=== PATIENT | male | born 1960 | race American Indian/Alaskan Native ===

== ENCOUNTER 2017-03-07 12:39 | Emergency (ER) | payer BC ==
[2017-03-07 13:09] VITALS: BP 129/70; PULSE 75; TEMP 98.5; BMI 40.5
[2017-03-07] MEDS ORDERED: KETOROLAC TROMETHAMINE 60 MG/2 ML VIAL IM ONE (14:02)
[2017-03-07] MEDS ORDERED: KETOROLAC TROMETHAMINE 60 MG/2 ML VIAL ONE (14:20)
--- NOTE | 2017-03-07 14:43 | PDOC ---
History of Present Illness <Kashif Barr - Last Filed: 03/07/17 16:06> - General History Source: Patient Exam Limitations: No Limitations - History of Present Illness Initial Comments: 03/07/17 14:37 CHIEF COMPLAINT: Constant left shoulder pain for 2 weeks HISTORY OF PRESENT ILLNESS: Patient is a 56-year-old man who presents complaining of left shoulder pain from the scapular region radiating down the left arm. The pain has been constant and severe for 2 weeks. He saw his primary care physician for this pain about 4 days ago. He had an EKG that was normal. He was given Celebrex for the pain. He had lab work that was normal. His pain continues, constant, present all the time, interferes with his sleep at night when it feels particularly strong. The pain is in the left scapular region, continuous, radiating down the left arm. It gets a little bit worse with movement. There is no pain in the neck and no pain with movement of the neck. There is no chest pain. There is no shortness of breath. There is no relationship to exertion. REVIEW OF SYSTEMS: GENERAL/CONSTITUTIONAL: No fever or chills. No weakness. No weight change. HEAD, EYES, EARS, NOSE AND THROAT: No change in vision. No ear pain or discharge. No sore throat. CARDIOVASCULAR: No chest pain or shortness of breath. RESPIRATORY: No cough, wheezing, or hemoptysis. GASTROINTESTINAL: No nausea, vomiting, diarrhea or constipation. No rectal bleeding. GENITOURINARY: No dysuria, frequency, or change in urination. MUSCULOSKELETAL: Positive left scapular pain radiating down the left arm. No numbness or weakness in the arms. SKIN AND BREASTS: No rash or easy bruising. NEUROLOGIC: No headache, vertigo, loss of consciousness, or loss of sensation. PSYCHIATRIC: No depression or anxiety. ENDOCRINE: No increased thirst. No abnormal weight change. HEMATOLOGIC/LYMPHATIC: No anemia, easy bleeding, or history of blood clots. ALLERGIC/IMMUNOLOGIC: No hives or skin allergy. No latex allergy. <Marino Bourgeois - Last Filed: 03/07/17 16:14> - General Chief Complaint: Pain, Acute Stated Complaint: LEFT SHOULDER PAIN Time Seen by Provider: 03/07/17 13:03 Past History <Kashif Barr - Last Filed: 03/07/17 16:06> - Past Medical History Anemia: No Asthma: No Cancer: No Cardiac Disorders: No CVA: No COPD: No CHF: No Dementia: No Diabetes: Yes (x8 yrs) GI Disorders: No Disorders: No HTN: No Hypercholesterolemia: No Liver Disease: No Seizures: No Thyroid Disease: No - Surgical History Abdominal Surgery: No Appendectomy: No Cardiac Surgery: No Cholecystectomy: No Lung Surgery: No Neurologic Surgery: No Orthopedic Surgery: Yes (Bilateral Carpal Tunnel Release) - Psycho/Social/Smoking Cessation Hx Anxiety: No Suicidal Ideation: No Smoking Status: No Smoking History: Never smoked Have you smoked in the past 12 months: No Number of Cigarettes Smoked Daily: 0 Information on smoking cessation initiated: No Hx Alcohol Use: Yes (SOCIAL) Drug/Substance Use Hx: No Substance Use Type: Alcohol Hx Substance Use Treatment: No <Marino Bourgeois - Last Filed: 03/07/17 16:14> - Past Medical History Allergies/Adverse Reactions: Allergies Allergy/AdvReac Type Severity Reaction Status Date / Time No Known Drug Allergies Allergy Verified 03/07/17 12:47 CLAMS Allergy Severe Swelling Uncoded 03/07/17 12:47 Home Medications: Ambulatory Orders Metformin HCl [Glucophage] 1,000 mg PO BID 02/25/15 Ascorbate Calcium [Vitamin C] 500 mg PO DAILY 03/07/17 Cholecalciferol (Vitamin D3) [Vitamin D3] 5,000 unit PO DAILY 03/07/17 Dapagliflozin Propanediol [Farxiga] 10 mg PO DAILY 03/07/17 Gabapentin 300 mg PO DAILY #30 capsule 03/07/17 Vitamin B Complex 1 each PO DAILY 03/07/17 *Physical Exam - Vital Signs Last Vital Signs Temp Pulse Resp BP Pulse Ox 98.5 F 75 20 129/70 100 03/07/17 12:40 03/07/17 12:40 03/07/17 12:40 03/07/17 12:40 03/07/17 12:40 <Kashif Barr - Last Filed: 03/07/17 16:06> - Vital Signs Last Vital Signs Temp Pulse Resp BP Pulse Ox 98.5 F 75 20 129/70 100 03/07/17 12:40 03/07/17 12:40 03/07/17 12:40 03/07/17 12:40 03/07/17 12:40 - Physical Exam Comments: 03/07/17 14:40 GENERAL: The patient is awake, alert, and fully oriented, in no acute distress. HEAD: Normal with no signs of trauma. EYES: Pupils equal, round and reactive to light, extraocular movements intact, sclera anicteric, conjunctiva clear. ENT: Ears normal, nares patent, oropharynx clear without exudates. Moist mucous membranes. NECK: Normal range of motion, supple without lymphadenopathy, JVD, or masses. LUNGS: Breath sounds equal, clear to auscultation bilaterally. No wheezes, and no crackles. HEART: Regular rate and rhythm, normal S1 and S2 without murmur, rub or gallop. ABDOMEN: Soft, nontender, normoactive bowel sounds. No guarding, no rebound. No masses. EXTREMITIES: The left scapula is somewhat tender to palpation. There is no rhomboid tenderness. There is no shoulder and swelling or tenderness at the glenohumeral area. NEUROLOGICAL: Cranial nerves II through XII grossly intact. Normal speech, normal gait. Sensation and strength is intact throughout the left arm and the right arm. PSYCH: Normal mood, normal affect. SKIN: Warm, Dry, normal turgor, no rashes or lesions noted. <Marino Bourgeois - Last Filed: 03/07/17 16:14> Heart Score/ECG Review - ECG Intrepretation Comment:: 03/07/17 14:43 Twelve-lead EKG shows normal sinus rhythm at a rate of 67 bpm. The axis is normal. The intervals are notable for an incomplete right bundle branch block. There are no acute ST elevations or depressions. In comparison with prior EKG of 02/08/2015, there are no significant changes. Impression: Normal sinus rhythm with incomplete right bundle branch block. Unchanged from prior EKG. <Marino Bourgeois - Last Filed: 03/07/17 16:14> ED Treatment Course - RADIOLOGY Radiograph Interpretation: 03/07/17 16:06 EXAM#: TYPE/EXAM: RESULT: [id number] RAD/SHOULDER-LEFT Left scapular pain X-ray of the left shoulder, 2 views The alignment is satisfactory . No gross bone or soft tissue abnormality seen. No gross fracture or dislocation is identified. Impression: No gross bone or soft tissue abnormality seen. Reported By: Tera Montano MD 03/07/17 1557 - Medications Given in the ED: ED Medications Discontinued Medications Generic Name Dose Route Start Last Admin Trade Name Freq PRN Reason Stop Dose Admin Ketorolac Tromethamine 60 mg 03/07/17 14:02 03/07/17 14:23 Toradol Injection - IM 03/07/17 14:03 60 mg ONCE ONE Administration <Kashif Barr - Last Filed: 03/07/17 16:06> - RADIOLOGY Radiology Studies Ordered: Category Date Time Status CHEST PA & LAT [RAD] Stat Radiology 03/07/17 14:01 Ordered SHOULDER-LEFT [RAD] Stat Radiology 03/07/17 14:01 Ordered - Medications Given in the ED: ED Medications Discontinued Medications Generic Name Dose Route Start Last Admin Trade Name Freq PRN Reason Stop Dose Admin Ketorolac Tromethamine 60 mg 03/07/17 14:02 03/07/17 14:23 Toradol Injection - IM 03/07/17 14:03 60 mg ONCE ONE Administration <Marino Bourgeois - Last Filed: 03/07/17 16:14> Medical Decision Making - Medical Decision Making 03/07/17 16:07 Patient presents with left scapular pain radiating down the left arm. Neurovascular exam, cardiovascular exam, pulmonary exams, all normal. Twelve- lead EKG is normal. Chest x-ray PA and lateral has poor inspiration, but is otherwise normal on my preliminary review. Final radiology reading is pending at the time of disposition. Left shoulder x-ray was reviewed by me as well as the radiologist and shows no acute pathology. Impression: Examination and symptoms are most suggestive of radicular pain. The constant nature for 2 weeks makes cardiac disease highly unlikely, as does the stable EKG as well as the normal labs that were performed by the primary care physician. Patient was given Govea 2 inhibitor by his primary care physician. I will start him on gabapentin and advise him to follow up with his primary care physician for up titration of the medication. <Marino Bourgeois - Last Filed: 03/07/17 16:14> *DC/Admit/Observation/Transfer <Kashif Barr - Last Filed: 03/07/17 16:06> - Discharge Dispostion Admit: No <Marino Bourgeois - Last Filed: 03/07/17 16:14> Diagnosis at time of Disposition: Shoulder pain Qualifiers: Chronicity: acute Laterality: left Qualified Code(s): M25.512 - Pain in left shoulder - Discharge Dispostion Disposition: HOME Condition at time of disposition: Stable - Prescriptions Prescriptions: Gabapentin 300 mg PO DAILY #30 capsule - Referrals Referrals: Clark Tripathi MD [Staff Physician] - 3 days - Patient Instructions Printed Discharge Instructions: DI for Shoulder Pain Additional Instructions: You were evaluated today for left shoulder and left arm pain. The EKG was normal. The x-ray of the chest and the left shoulder did not show any abnormalities. The diagnosis is likely a pinched nerve with pain radiating down the left arm. It is recommended that you take gabapentin 300 mg once daily. Follow-up with Dr. Tripathi this week to see if you can increase the dose of the medication. You may also use a warm heating pad before bed to help with the pain. Return to the emergency department for any severe or progressive symptoms.
--- NOTE | 2017-03-10 09:25 | EKG ---
Test Reason : Blood Pressure : / mmHG Vent. Rate : 067 BPM Atrial Rate : 067 BPM P-R Int : 206 ms QRS Dur : 114 ms QT Int : 402 ms P-R-T Axes : 014 -20 011 degrees QTc Int : 424 ms NORMAL SINUS RHYTHM INCOMPLETE RIGHT BUNDLE BRANCH BLOCK NO PREVIOUS ECGS AVAILABLE Confirmed by MD CRYSTAL, TRISHA ([id number]) on 03/10/2017 9:24:55 AM Referred By: DR ARROYO Confirmed By:TRISHA ROJAS MD
== END 2017-03-07 16:19 | disposition home or self-care (01) ==
LOC: FER 12:39
PROC: 3E0233Z Introduction of Anti-inflammatory into Muscle, Percutaneous Approach (ICD-10-PCS; principal; 2017-03-07)
DX: M25.512 Pain in left shoulder (principal)
CPT/HCPCS: 71020-TC; 73030-TC-LT; 93005; 99283-25

== ENCOUNTER 2019-01-08 17:20 | Emergency (ER) | payer BC ==
[2019-01-08 17:51] VITALS: BP 117/76; PULSE 99; TEMP 98.7; BMI 40.7
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
== END 2019-01-08 18:35 | disposition home or self-care (01) ==
LOC: FER 17:20
DX: J02.9 Acute pharyngitis, unspecified (principal); J34.89 Other specified disorders of nose and nasal sinuses; R05 Cough; E11.9 Type 2 diabetes mellitus without complications; Z79.84 Long term (current) use of oral hypoglycemic drugs
CPT/HCPCS: 71046-TC-FY; 99282-25

== ENCOUNTER 2021-01-17 16:05 | Emergency (ER) | payer BC ==
[2021-01-17] MEDS ORDERED: LACTATED RINGERS SOLUTION 1000 ML INFUS.BAG IV STA (16:12)
[2021-01-17] MEDS ORDERED: ACETAMINOPHEN 1000 MG/100 ML VIAL (NON FORMULARY) IVPB ONE (16:21)
[2021-01-17 16:29] VITALS: BP 133/83; PULSE 95; TEMP 98.8; BMI 40.7
[2021-01-17] MEDS ORDERED: ACETAMINOPHEN INJECTION 100 ML IVPB ONE (16:30)
[2021-01-17 17:01] LABS: BASO % 1.3 % (0-2.0); EOS % 5.4 % (0-4.5); HEMOGLOBIN 15.7 GM/dl (11.7-16.9); LYMPH % 21.1 % (8-40); MCH 25.5 pg (25.7-33.7); MCHC 33.4 g/dl (32.0-35.9); MEAN CELL VOLUME 76.2 fl (80-96); MEAN PLT VOLUME 9.1 fl (7.5-11.1); MONO % 3.2 % (3.8-10.2); PLATELET COUNT 268 K/MM3 (134-434); RBC 6.17 M/mm3 (4.00-5.60); RDW 13.7 % (11.9-15.9); WHITE BLOOD COUNT 12.9 K/mm3 (4.0-10.8)
[2021-01-17 17:17] LABS: ALBUMIN 4.3 g/dl (3.4-5.0); BILIRUBIN,TOTAL 0.6 mg/dl (0.2-1); CALCIUM 8.9 mg/dl (8.5-10); CREATININE 1.1 mg/dl (0.55-1.3); MAGNESIUM 1.5 mg/dL (1.8-2.4); TOT PROT 7.9 g/dl (6.4-8.2)
[2021-01-17] MEDS ORDERED: LACTATED RINGERS SOLUTION 1000 ML INFUS.BAG IV ONE (17:53)
[2021-01-17] MEDS ORDERED: MAGNESIUM 1GM/D5W - 1 GM/100 ML IVPB IVPB ONE (20:28)
== END 2021-01-17 20:56 | disposition home or self-care (01) ==
LOC: FER 16:05
PROC: 3E0333Z Introduction of Anti-inflammatory into Peripheral Vein, Percutaneous Approach (ICD-10-PCS; principal; 2021-01-17)
PROC: 3E033GC Introduction of Other Therapeutic Substance into Peripheral Vein, Percutaneous Approach (ICD-10-PCS; 2021-01-17)
DX: R19.7 Diarrhea, unspecified (principal); E83.42 Hypomagnesemia
CPT/HCPCS: 36415; 74177-TC; 80053; 83735; 85025; 99285-25; J0131; Q9967

== ENCOUNTER 2021-12-15 18:43 | Emergency (ER) | payer BC ==
[2021-12-15 18:59] VITALS: BP 126/73; PULSE 82; TEMP 98.7; BMI 36.6
[2021-12-15 20:11] LABS: HEMATOCRIT 38.8 % (35.4-49); MCH 25.1 pg (25.7-33.7); MCHC 33.4 g/dl (32.0-35.9); MEAN CELL VOLUME 75.1 fl (80-96); MEAN PLT VOLUME 8.6 fl (7.5-11.1); PLATELET COUNT 200.4 10^3/uL (134-434); RBC 5.16 10^6/uL (4.00-5.60); RDW 16.2 % (11.9-15.9); WHITE BLOOD COUNT 7.3 10^3/uL (4.0-10.8)
[2021-12-15 20:16] LABS: INR 1.07 (0.83-1.09); PROTHROMBIN TIME (PATIENT) 12.3 SEC (9.7-13.0)
[2021-12-15 20:19] LABS: ALBUMIN 3.9 g/dl (3.4-5.0); BILIRUBIN,TOTAL 0.6 mg/dl (0.2-1); CALCIUM 9.1 mg/dl (8.5-10); CREATININE 1.3 mg/dl (0.55-1.3); TOT PROT 7.2 g/dl (6.4-8.2)
[2021-12-15 21:42] LABS: ADD RBC MORPHOLOGY YES; PLATELET ESTIMATE ADEQUATE
[2021-12-15 21:44] LABS: ANISOCYTOSIS 1+
[2021-12-15] MEDS ORDERED: ALBUTEROL SO4 2.5/IPRATROPIUM 0.5 INH SOL 3 ML VIAL.NEB. NEB ONE ×2 (23:30)
== END 2021-12-15 23:59 | disposition home or self-care (01) ==
LOC: FER 18:43
PROC: 3E0F7GC Introduction of Other Therapeutic Substance into Respiratory Tract, Via Natural or Artificial Opening (ICD-10-PCS; principal; 2021-12-15)
DX: J40 Bronchitis, not specified as acute or chronic (principal)
CPT/HCPCS: 36415; 71275-TC; 80053; 85025; 85610; 99285-25; Q9967

== ENCOUNTER 2023-02-17 05:11 | Emergency (ER) | payer BC ==
[2023-02-17 05:21] VITALS: PULSE 61; RESP 18; TEMP 97.8; BMI 38.1
[2023-02-17] MEDS ORDERED: ACETAMINOPHEN 1000 MG/100 ML BAG IVPB ONE (05:36)
[2023-02-17] MEDS ORDERED: ACETAMINOPHEN INJECTION 100 ML IVPB ONE (05:37)
[2023-02-17 05:51] VITALS: BP 177/83
[2023-02-17] MEDS ORDERED: morphine CARPU-JECT 2 MG/1 ML DISP.SYRIN IVPUSH ONE (06:26)
[2023-02-17] MEDS ORDERED: morphine SULFATE 4 MG/ML VIAL ONE (06:27)
[2023-02-17 06:36] LABS: BASO % 0.5 % (0-2.0); EOS % 3.6 % (0-4.5); HEMATOCRIT 41.2 % (35.4-49); HEMOGLOBIN 13.2 GM/dL (11.7-16.9); MCH 24.1 pg (25.7-33.7); MCHC 31.9 g/dl (32.0-35.9); MEAN CELL VOLUME 75.6 fl (80-96); MEAN PLT VOLUME 9.2 fl (7.5-11.1); MONO % 6.3 % (3.8-10.2); NEUT % 55.6 % (42.8-82.8); PLATELET COUNT 204 10^3/uL (134-434); RBC 5.46 M/mm3 (4.00-5.60); RDW 14.8 % (11.9-15.9); WHITE BLOOD COUNT 9.5 K/mm3 (4.0-10.0)
[2023-02-17] MEDS ORDERED: ONDANSETRON 4 MG/2 ML VIAL IVPUSH ONE (06:49)
[2023-02-17] MEDS ORDERED: ONDANSETRON 4 MG/2 ML VIAL ONE (06:49)
[2023-02-17 06:52] LABS: BLOOD UREA NITROGEN 12.5 mg/dL (7-18); CALCIUM 8.8 mg/dL (8.5-10.1)
[2023-02-17 06:53] LABS: ALBUMIN 3.8 g/dl (3.4-5.0)
[2023-02-17] MEDS ORDERED: FAMOTIDINE 20 MG/50 ML IVPB 20 MG/50 ML MG IVPB ONE ×2 (06:53→06:55)
[2023-02-17 06:55] LABS: CREATININE 0.9 mg/dL (0.55-1.3)
[2023-02-17 06:57] LABS: BILIRUBIN,TOTAL 0.3 mg/dL (0.2-1); TOT PROT 7.2 g/dl (6.4-8.2)
== END 2023-02-17 08:34 | disposition home or self-care (01) ==
LOC: FER 05:11
PROC: 3E033GC Introduction of Other Therapeutic Substance into Peripheral Vein, Percutaneous Approach (ICD-10-PCS; principal; 2023-02-17)
PROC: 3E033NZ Introduction of Analgesics, Hypnotics, Sedatives into Peripheral Vein, Percutaneous Approach (ICD-10-PCS; 2023-02-17)
PROC: 3E033GC Introduction of Other Therapeutic Substance into Peripheral Vein, Percutaneous Approach (ICD-10-PCS; 2023-02-17)
PROC: 3E033GC Introduction of Other Therapeutic Substance into Peripheral Vein, Percutaneous Approach (ICD-10-PCS; 2023-02-17)
DX: R10.10 Upper abdominal pain, unspecified (principal); R14.0 Abdominal distension (gaseous); K80.20 Calculus of gallbladder without cholecystitis without obstruction
CPT/HCPCS: 36415; 74176-TC; 80053; 83690; 85025; 99284-25

== ENCOUNTER 2023-02-18 22:39 | Inpatient (IN) | payer BC ==
[2023-02-18] MEDS ORDERED: KETOROLAC TROMETHAMINE 30 MG/1 ML VIAL IVPUSH ONE (22:50)
[2023-02-18] MEDS ORDERED: morphine CARPU-JECT 4 MG/1 ML DISP.SYRIN IVPUSH ONE (22:50)
[2023-02-18] MEDS ORDERED: PANTOPRAZOLE SODIUM 40 MG VIAL IVPUSH ONE (22:50)
[2023-02-18] MEDS ORDERED: SODIUM CHLORIDE 1,000 ML IV ONE (22:50)
[2023-02-18] MEDS ORDERED: PANTOPRAZOLE SODIUM 40 MG VIAL ONE (22:59)
[2023-02-18] MEDS ORDERED: morphine SULFATE 4 MG/ML VIAL ONE (23:24)
[2023-02-18] MEDS ORDERED: KETOROLAC TROMETHAMINE 30 MG/1 ML VIAL ONE (23:24)
[2023-02-18 23:26] LABS: HEMATOCRIT 44.2 % (35.4-49); HEMOGLOBIN 14.4 G/dL (11.7-16.9); MCH 24.9 pg (25.7-33.7); MCHC 32.5 g/dl (32.0-35.9); MEAN CELL VOLUME 76.8 fl (80-96); MEAN PLT VOLUME 9.6 fl (7.5-11.1); PLATELET COUNT 182.1 10^3/uL (134-434); RBC 5.76 10^6/uL (4.00-5.60); RDW 16.3 % (11.9-15.9); WHITE BLOOD COUNT 16.8 10^3/uL (4.0-10.8)
[2023-02-18 23:44] LABS: ALBUMIN 4.1 g/dl (3.4-5.0); BILIRUBIN,TOTAL 0.7 mg/dl (0.2-1); BLOOD UREA NITROGEN 10.6 mg/dl (7-18); CALCIUM 8.6 mg/dl (8.5-10.1); SGOT/AST 11.7 U/L (15-37); SGPT/ALT 15.5 U/L (7-52)
[2023-02-19] MEDS ORDERED: PIPERACILLIN/TAZOB 4.5 GM 4.5 GM in DEXTROSE 5%-WATER 100 ML IVPB ONE (00:09)
[2023-02-19] MEDS ORDERED: PIPERACILLIN/TAZOBACTAM 4.5 GM VIAL IVPB ONE (00:13)
[2023-02-19] MEDS ORDERED: ACETAMINOPHEN 1000 MG/100 ML BAG IVPB PRN (01:11)
[2023-02-19] MEDS: SODIUM CHLORIDE 1,000 ML IV SCH ×3 (02:25→15:30)
[2023-02-19] MEDS ORDERED: PIPERACILLIN/TAZOBACTAM 3.375 GM VIAL IVPB ONE ×2 (04:27→13:49)
[2023-02-19] MEDS: PIPERACILLIN/TAZOB 3.375 GM 3.375 GM in DEXTROSE 5%-WATER - 50 ML IVPB SCH ×4 (04:30→21:52)
[2023-02-19] MEDS ORDERED: morphine SULFATE 4 MG/ML VIAL ONE (04:54)
[2023-02-19] MEDS ORDERED: morphine SULFATE 4 MG/ML VIAL IVPUSH PRN (07:14)
[2023-02-19] MEDS ORDERED: LORazepam 1 MG TABLET PO ONE (07:19)
[2023-02-19] MEDS: INSULIN SLIDING SCALE (NOVOLOG) 1 VIAL SQ SCH ×5 (07:40→22:28)
[2023-02-19] MEDS ORDERED: BUPIVACAINE HCL/PF 0.5% (5MG/ML) 10 ML VIAL ONE (09:39)
[2023-02-19 10:01] VITALS: BMI 39.3
[2023-02-19] MEDS ORDERED: PROPOFOL 40 ML ONE (10:25)
[2023-02-19] MEDS ORDERED: MIDAZOLAM HCL 2 MG/2 ML SINGLE DOSE VIAL ONE (10:25)
[2023-02-19] MEDS ORDERED: ROCURONIUM BROMIDE 50 MG/5 ML SYRINGE ONE ×2 (10:25→12:06)
[2023-02-19] MEDS ORDERED: HYDROmorphone HCl 2 MG/ML VIAL ONE (10:41)
[2023-02-19] MEDS ORDERED: SUGAMMADEX SODIUM 200 MG/2 ML VIAL ONE (12:07)
[2023-02-19] MEDS ORDERED: KETOROLAC TROMETHAMINE 30 MG/1 ML VIAL ONE (12:38)
[2023-02-19] MEDS ORDERED: ONDANSETRON 4 MG/2 ML VIAL ONE (12:38)
[2023-02-19] MEDS ORDERED: PROMETHAZINE HCL 25 MG/1 ML VIAL IVPB PRN (13:28)
[2023-02-19] MEDS ORDERED: oxyCODONE HCL 5 MG TABLET PO PRN ×3 (13:28→13:44)
[2023-02-19] MEDS ORDERED: ONDANSETRON 4 MG/2 ML VIAL IVPUSH PRN ×3 (13:28→13:44)
[2023-02-19] MEDS ORDERED: LACTATED RINGERS SOLUTION 1,000 ML IV SCH (13:30)
[2023-02-19] MEDS ORDERED: SODIUM CHLORIDE 1,000 ML IV SCH (13:37)
[2023-02-19] MEDS: ACETAMINOPHEN 1000 MG/100 ML BAG IVPB SCH ×2 (13:58→22:29)
[2023-02-19] MEDS ORDERED: PIPERACILLIN/TAZOB 3.375 GM 3.375 GM in DEXTROSE 5%-WATER - 50 ML IVPB SCH ×2 (15:00→17:30)
[2023-02-19] MEDS ORDERED: INSULIN SLIDING SCALE (NOVOLOG) 1 VIAL SQ SCH (16:30)
[2023-02-19 19:56] LABS: BASO % 0.1 % (0-2.0); EOS % 0.1 % (0-4.5); HEMATOCRIT 38.2 % (35.4-49); HEMOGLOBIN 11.7 GM/dL (11.7-16.9); LYMPH % 9.2 % (8-40); MCH 23.1 pg (25.7-33.7); MCHC 30.8 g/dl (32.0-35.9); MEAN PLT VOLUME 9.3 fl (7.5-11.1); MONO % 5.9 % (3.8-10.2); NEUT % 84.7 % (42.8-82.8); PLATELET COUNT 190 10^3/uL (134-434); RBC 5.09 M/mm3 (4.00-5.60); RDW 14.9 % (11.9-15.9); WHITE BLOOD COUNT 15.3 K/mm3 (4.0-10.0)
[2023-02-19 20:02] LABS: INR 1.26 (0.83-1.09); PROTHROMBIN TIME (PATIENT) 14.6 SEC (9.7-13.0)
[2023-02-19 20:13] LABS: BLOOD UREA NITROGEN 14.2 mg/dL (7-18); CALCIUM 7.8 mg/dL (8.5-10.1)
[2023-02-19 20:16] LABS: CREATININE 1.4 mg/dL (0.55-1.3)
[2023-02-19 20:19] LABS: PHOSPHOROUS 3.6 mg/dL (2.5-4.9)
[2023-02-20] MEDS: morphine SULFATE 4 MG/ML VIAL IVPUSH PRN ×2 (01:03→23:21)
[2023-02-20] MEDS: PIPERACILLIN/TAZOB 3.375 GM 3.375 GM in DEXTROSE 5%-WATER - 50 ML IVPB SCH ×4 (02:13→20:22)
[2023-02-20] MEDS: SODIUM CHLORIDE 1,000 ML IV SCH ×2 (03:09→15:30)
[2023-02-20] MEDS: ACETAMINOPHEN 1000 MG/100 ML BAG IVPB SCH ×2 (05:46→13:37)
[2023-02-20] MEDS: INSULIN SLIDING SCALE (NOVOLOG) 1 VIAL SQ SCH ×4 (06:05→21:54)
[2023-02-20] MEDS ORDERED: INSULIN (NOVOLOG) ASPART 100 UNITS/ML 10ML VIAL ONE ×3 (07:42→21:53)
[2023-02-20 09:00] LABS: BASO % 0.3 % (0-2.0); EOS % 2.3 % (0-4.5); HEMATOCRIT 35.6 % (35.4-49); HEMOGLOBIN 11.3 GM/dL (11.7-16.9); MCH 23.5 pg (25.7-33.7); MCHC 31.8 g/dl (32.0-35.9); MEAN CELL VOLUME 73.9 fl (80-96); MEAN PLT VOLUME 8.5 fl (7.5-11.1); MONO % 7.6 % (3.8-10.2); NEUT % 73.8 % (42.8-82.8); PLATELET COUNT 186 10^3/uL (134-434); RBC 4.81 M/mm3 (4.00-5.60); WHITE BLOOD COUNT 12.5 K/mm3 (4.0-10.0)
[2023-02-20] MEDS: ENOXAPARIN NA (PORCINE) 40 MG/0.4 ML DISP.SYRIN SQ SCH (09:13)
[2023-02-20 09:27] LABS: POTASSIUM 3.7 mmol/L (3.5-5.1)
[2023-02-20] MEDS: oxyCODONE HCL 5 MG TABLET PO PRN ×2 (09:29→20:23)
[2023-02-20 09:31] LABS: BLOOD UREA NITROGEN 12.8 mg/dL (7-18); CALCIUM 7.8 mg/dL (8.5-10.1)
[2023-02-20 09:33] LABS: CREATININE 1.2 mg/dL (0.55-1.3)
[2023-02-20 09:35] LABS: TOT PROT 5.9 g/dl (6.4-8.2)
[2023-02-20 09:43] LABS: ALBUMIN 2.6 g/dl (3.4-5.0)
[2023-02-20] MEDS ORDERED: ENOXAPARIN NA (PORCINE) 40 MG/0.4 ML DISP.SYRIN SQ SCH (10:00)
[2023-02-20] MEDS ORDERED: MELATONIN 5 MG TABLETS PO ONE (22:09)
[2023-02-20 23:20] VITALS: RESP 18
[2023-02-21] MEDS: PIPERACILLIN/TAZOB 3.375 GM 3.375 GM in DEXTROSE 5%-WATER - 50 ML IVPB SCH ×2 (03:45→09:06)
[2023-02-21 07:27] VITALS: BP 156/85; PULSE 80; TEMP 98.3
[2023-02-21] MEDS: INSULIN SLIDING SCALE (NOVOLOG) 1 VIAL SQ SCH ×2 (08:04→12:50)
[2023-02-21] MEDS: oxyCODONE HCL 5 MG TABLET PO PRN (08:14)
[2023-02-21] MEDS: SODIUM CHLORIDE 1,000 ML IV SCH (08:15)
[2023-02-21] MEDS: ENOXAPARIN NA (PORCINE) 40 MG/0.4 ML DISP.SYRIN SQ SCH (09:06)
[2023-02-21 09:10] LABS: BASO % 0.3 % (0-2.0); EOS % 4.1 % (0-4.5); HEMATOCRIT 36.2 % (35.4-49); HEMOGLOBIN 11.4 GM/dL (11.7-16.9); LYMPH % 19.3 % (8-40); MCH 23.6 pg (25.7-33.7); MCHC 31.4 g/dl (32.0-35.9); MEAN CELL VOLUME 75.2 fl (80-96); MEAN PLT VOLUME 8.7 fl (7.5-11.1); MONO % 5.6 % (3.8-10.2); NEUT % 70.7 % (42.8-82.8); PLATELET COUNT 223 10^3/uL (134-434); RBC 4.81 M/mm3 (4.00-5.60); RDW 14.6 % (11.9-15.9); WHITE BLOOD COUNT 8.1 K/mm3 (4.0-10.0)
[2023-02-21 09:27] LABS: POTASSIUM 3.7 mmol/L (3.5-5.1)
[2023-02-21 09:31] LABS: ALBUMIN 2.5 g/dl (3.4-5.0); BLOOD UREA NITROGEN 8.7 mg/dL (7-18); CALCIUM 7.9 mg/dL (8.5-10.1)
[2023-02-21 09:33] LABS: CREATININE 1.1 mg/dL (0.55-1.3)
[2023-02-21 09:35] LABS: BILIRUBIN,TOTAL 0.5 mg/dL (0.2-1)
== END 2023-02-21 13:30 | disposition home or self-care (01) | DRG 419 ==
LOC: FER 22:39 → J8W 02-19 06:30 → UNDOADMIN 02-19 06:30 → JASUSAT 02-19 10:19 → J8W 02-19 10:31 → JASUSAT 02-20 10:02
PROVIDERS: ADMIT Internal Medicine; ATTEND Internal Medicine
PROC: 0FT44ZZ Resection of Gallbladder, Percutaneous Endoscopic Approach (ICD-10-PCS; principal; 2023-02-19 10:30)
DX: K80.00 Calculus of gallbladder with acute cholecystitis without obstruction (principal); E11.9 Type 2 diabetes mellitus without complications; K76.0 Fatty (change of) liver, not elsewhere classified; E66.9 Obesity, unspecified; K82.A1 Gangrene of gallbladder in cholecystitis; Z68.39 Body mass index [BMI] 39.0-39.9, adult; Z79.84 Long term (current) use of oral hypoglycemic drugs; I10 Essential (primary) hypertension
CPT/HCPCS: 36415; 76705-TC; 80048; 80053; 81003; 82962; 83036; 83690; 83735; 84100; 85025; 85027; 85610; 85730; 86850; 86900; 86901; 88304-TC; 93005; 94760; 97116-GP; 97161-GP; 99285-25

== ENCOUNTER 2024-03-18 06:48 | Day surgery (SDC) | payer OTHER, BC ==
[2024-03-14 11:40] VITALS: BMI 35.3
[2024-03-18] MEDS ORDERED: LIDOCAINE HCL 1%, 10 MG/ML (20ML VIAL) ONE ×3 (08:20→09:03)
[2024-03-18] MEDS ORDERED: BUPIVACAINE HCL/PF 0.5% (5MG/ML) 10 ML VIAL ONE (08:23)
[2024-03-18] MEDS: LIDOCAINE HCL 1%, 10 MG/ML (20ML VIAL) NR ONE (09:06)
[2024-03-18 09:56] VITALS: PULSE 80; RESP 17; TEMP 97.7
[2024-03-18 10:01] VITALS: BP 128/84
== END 2024-03-18 09:50 | disposition home or self-care (01) ==
LOC: FASU 06:48
PROVIDERS: ATTEND Orthopaedic Surgery
PROC: 0LN70ZZ Release Right Hand Tendon, Open Approach (ICD-10-PCS; principal; 2024-03-18 09:08)
DX: M65.311 Trigger thumb, right thumb (principal)
CPT/HCPCS: 82962

== ENCOUNTER 2024-07-10 19:26 | Emergency (ER) | payer OTHER, BC ==
[2024-07-10 19:36] VITALS: BMI 31.8
[2024-07-10 19:51] VITALS: BP 135/76; PULSE 76; RESP 16; TEMP 98.4
[2024-07-10] MEDS ORDERED: LIDO 2%/EPI 1:200000 PRESRVFRE (20 ML SDVIAL) ONE (19:52)
[2024-07-10] MEDS: LIDOCAINE 2%/EPINEPHRINE 1:100000 (50 ML MD VIAL) INF ONE (19:53)
[2024-07-10] MEDS ORDERED: CEPHALEXIN MONOHYDRATE 500 MG CAPSULE (UD) ONE (20:15)
[2024-07-10] MEDS ORDERED: DIPHTH,PERTUSS(ACELL),TET 0.5 ML DISP.SYRIN IM ONE (20:16)
[2024-07-10] MEDS: DIPHTH,PERTUSS(ACELL),TET 0.5 ML DISP.SYRIN IM ONE (20:19)
[2024-07-10] MEDS: CEPHALEXIN MONOHYDRATE 500 MG CAPSULE (UD) PO ONE (20:19)
== END 2024-07-10 20:36 | disposition home or self-care (01) ==
LOC: FER 19:26
PROC: 0HQGXZZ Repair Left Hand Skin, External Approach (ICD-10-PCS; principal; 2024-07-10)
PROC: 3E0234Z Introduction of Serum, Toxoid and Vaccine into Muscle, Percutaneous Approach (ICD-10-PCS; 2024-07-10)
DX: S61.412A Laceration without foreign body of left hand, initial encounter (principal); W26.0XXA Contact with knife, initial encounter; Z23 Encounter for immunization
CPT/HCPCS: 12001-25; 90471; 90715; 99284-25

== ENCOUNTER 2024-07-27 15:10 | Emergency (ER) | payer OTHER, BC ==
[2024-07-27 15:20] VITALS: BP 147/74; PULSE 81; RESP 16; TEMP 98.8; BMI 31.8
== END 2024-07-27 15:42 | disposition home or self-care (01) ==
LOC: FER 15:10
DX: M79.645 Pain in left finger(s) (principal)
CPT/HCPCS: 99283-25

== ENCOUNTER 2024-09-16 15:53 | Emergency (ER) | payer OTHER, BC ==
[2024-09-16 16:04] VITALS: BP 144/72; PULSE 81; RESP 19; TEMP 98.9; BMI 32.7
[2024-09-16] MEDS ORDERED: ACETAMINOPHEN 325 MG TABLET (FP) ONE (17:21)
[2024-09-16] MEDS ORDERED: LIDOCAINE 5% TOPICAL PATCH ONE (17:22)
[2024-09-16] MEDS ORDERED: KETOROLAC TROMETHAMINE 15 MG/ML VIAL ONE (17:22)
[2024-09-16] MEDS: KETOROLAC TROMETHAMINE 15 MG/ML VIAL IM ONE (17:28)
[2024-09-16] MEDS: LIDOCAINE 5% TOPICAL PATCH TP ONE (17:28)
[2024-09-16] MEDS: ACETAMINOPHEN 325 MG TABLET (FP) PO ONE (17:29)
== END 2024-09-16 17:34 | disposition home or self-care (01) ==
LOC: FER 15:53
PROC: 3E0233Z Introduction of Anti-inflammatory into Muscle, Percutaneous Approach (ICD-10-PCS; principal; 2024-09-16)
DX: M54.6 Pain in thoracic spine (principal)
CPT/HCPCS: 99284-25